=== PATIENT | female | born 1965 | race Caucasian/White ===

== ENCOUNTER 2017-09-25 23:48 | Emergency (ER) | payer SELFPAY ==
[2017-09-26] MEDS ORDERED: Morphine 10 MG/ML VIAL ONE (00:04)
[2017-09-26] MEDS ORDERED: Ondansetron HCl/PF 4 MG/2 ML Vial ONE (00:04)
[2017-09-26 00:14] LABS: #Basophils 0.1 thou/uL (0.0-0.2); #Eosinphils 0.2 thou/uL (0.0-0.7); #Monocytes 1.3 thou/uL (0.11-0.59); #Neutrophils 8.2 thou/uL (1.40-6.50); %Basophils 0.9 % (0.0-1.0); %Eosinophils 1.3 % (0.0-10.0); %Lymphocytes 33.8 % (21.0-51.0); %Monocytes 8.7 % (0.0-10.0); Hematocrit 53.2 % (36.0-47.0); Mean Platelet Volume 8.1 fL (7.4-10.4); Red Blood Cell (RBC) Count 5.08 mill/uL (4.20-5.40); White Blood Cell (WBC) Count 14.7 thou/uL (4.8-10.8)
[2017-09-26 00:29] LABS: Lactic Acid - Sepsis 1.7 mmol/L (0.5-2.2)
[2017-09-26 00:34] LABS: ALT (SGPT) 97 U/L (8-55); AST (SGOT) 97 U/L (5-34); Alkaline Phosphatase 103 U/L (40-150); Anion Gap 17 mmol/L (10-20); BUN (Urea Nitrogen) 16 mg/dL (9.8-20.1); Bilirubin, Total 0.2 mg/dL (0.2-1.2); Calc. Creatinine Clearance 0 mL/min (70-130); Calcium 9.2 mg/dL (7.8-10.44); Carbon Dioxide 20 mmol/L (22-29); Chloride 110 mmol/L (98-107); Estimated GFR-MDRD 84; Globulin 4.3 g/dL (2.4-3.5); Protein, Total 8.2 g/dL (6.0-8.3)
[2017-09-26 01:21] LABS: Bilirubin Negative (Negative); Blood, Urine Negative (Negative); Glucose, Urine (Dipstick) Negative (Negative); Ketone, Urine Negative (Negative); Nitrite Negative (Negative); Protein, Urine (Dipstick) Negative (Neg-Trace); Urobilinogen 0.2 mg/dL (0.2-1.0)
[2017-09-26] MEDS ORDERED: Bacitracin Zinc 1 Packet ONE (02:30)
[2017-09-26] MEDS ORDERED: Adacel (T-DAP) 0.5 ML VIAL ONE (02:40)
--- NOTE | 2017-09-26 07:45 | RAD ---
CHEST ONE VIEW: HISTORY: Emergency exam. COMPARISON: None. FINDINGS: The lungs are slightly hyperinflated. The cardiac silhouette and mediastinal contours are within no rmal limits. There are left upper quadrant surgical clips in the abdomen. No displaced rib fracture. IMPRESSION: No acute intrathoracic abnormality. POS: [facility]
--- NOTE | 2017-09-26 07:53 | RAD ---
EMERGENCY EXAM PELVIS ONE VIEW: COMPARISON: None. FINDINGS: There is a nondisplaced fracture of the right greater trochanter of the femur. Severe degenerative disease of the left hip with ring osteophytes of the left femoral head-neck junction. There are als o large osteophytes of the acetabulum. Mild narrowing of the pubic symphysis. Both obturator rings are intact. Severe facet arthropathy at L4-L5. IMPRESSION: Nondisplaced fracture of the greater trochanter of the right femur. POS: [facility]
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
== END 2017-09-26 02:49 | disposition home or self-care (01) ==
LOC: ERS 23:48
DX: S72.114A Nondisplaced fracture of greater trochanter of right femur, initial encounter for closed fracture (principal); J45.909 Unspecified asthma, uncomplicated; F17.210 Nicotine dependence, cigarettes, uncomplicated; V86.59XA Driver of other special all-terrain or other off-road motor vehicle injured in nontraffic accident, initial encounter
CPT/HCPCS: 71010; 72040; 72170; 80053; 81003; 83605; 85025; 86850; 86870; 86900; 86901; 86905; 90471; 90715; 96374; 96375; 99406; J2270; J2405

== ENCOUNTER 2019-09-04 14:10 | Emergency (ER) | payer SELFPAY ==
[2019-09-04] MEDS ORDERED: Ketorolac Tromethamine 30 MG/ML VIAL ONE (15:13)
--- NOTE | 2019-09-04 15:47 | RAD ---
Exam: XR Hip Lt 2-3 View HISTORY: Left groin hip pain for 2 weeks. COMPARISON: AP pelvis radiograph on 09/26/2017 FINDINGS: Osteoarthritis is again seen involving the left hip with narrowing of the superolateral joint space w ith subchondral cystic changes present and rim of osteophytes seen at the femoral head neck junction similar to prior exam. Degenerative changes are seen in the visualized lower lumbar spine. No acute fracture, dislocation, or other acute osseous abnormality is identified. IMPRESSION: No acute osseous abnormality is identified.
== END 2019-09-04 16:41 | disposition home or self-care (01) ==
LOC: ERS 14:10
DX: M25.552 Pain in left hip (principal); J44.9 Chronic obstructive pulmonary disease, unspecified; F17.210 Nicotine dependence, cigarettes, uncomplicated; Z79.51 Long term (current) use of inhaled steroids
CPT/HCPCS: 96372; J1885

== ENCOUNTER 2020-07-02 22:31 | Inpatient (IN) | payer OTHER ==
[~2020-07-02 22:31] MED LIST: Iopamidol-370 76% 500 ML 1 ML ONE
[2020-07-02] MEDS ORDERED: Ketorolac Tromethamine 30 MG/ML VIAL ONE (22:42)
[2020-07-02] MEDS ORDERED: Morphine 4 MG/ML VIAL ONE (22:44)
[2020-07-02] MEDS ORDERED: CEFAZOLIN 1 GM VIAL ONE (22:44)
[2020-07-02] MEDS ORDERED: Adacel (T-DAP) 0.5 ML SYRINGE ONE (22:44)
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
[2020-07-02 23:18] LABS: ALT (SGPT) 54 U/L (8-55); AST (SGOT) 67 U/L (5-34); Albumin 3.3 g/dL (3.5-5.0); Alkaline Phosphatase 73 U/L (40-110); Anion Gap 11 mmol/L (10-20); BUN (Urea Nitrogen) 14 mg/dL (9.8-20.1); Band 2 % (5-11); Bilirubin, Total 0.4 mg/dL (0.2-1.2); Calc. Creatinine Clearance 0 mL/min (70-130); Calcium 8.3 mg/dL (7.8-10.44); Carbon Dioxide 20 mmol/L (22-29); Chloride 109 mmol/L (98-107); Estimated GFR-MDRD 54; Glucose 116 mg/dL (70-105); Hemoglobin 16.7 g/dL (12.0-16.0); Lymphocytes 11 % (21-51); MDiff Complete? YES; Macrocytosis SLIGHT = 6-15 cells (100X) (0-5/hpf); Magnesium 1.4 mg/dL (1.6-2.6); Mean Corpuscular HGB CONC 32.3 g/dL (32.0-36.0); Mean Corpuscular Hemoglobin 34.7 pg (27.0-31.0); Mean Platelet Volume 9.4 fL (7.4-10.4); Monocytes 1 % (0-10); Neutrophil 86 % (42-75); Platelet Count 228 thou/uL (130-400); Potassium 4.2 mmol/L (3.5-5.1); Protein, Total 6.3 g/dL (6.0-8.3); RBC Distribution Width 12.5 % (11.5-14.5); Red Blood Cell (RBC) Count 4.81 mill/uL (4.20-5.40); Sodium 136 mmol/L (136-145); White Blood Cell (WBC) Count 21.7 thou/uL (4.8-10.8)
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
--- NOTE | 2020-07-02 23:38 | RAD ---
XR Knee Lt 4 View STANDARD HISTORY: No trauma. Left knee pain FINDINGS: No acute fracture or dislocation is identified. There is a old healed fracture of the proximal fibula
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
[2020-07-03] MEDS ORDERED: Dextrose 5% in Water 1,000 ML IV PRN (00:04)
[2020-07-03] MEDS ORDERED: Dextrose 50% Abboject 50 ML SYRINGE SLOW IVP PRN (00:04)
[2020-07-03] MEDS ORDERED: hydrALAZINE 20 MG/ML VIAL SLOW IVP PRN (00:04)
[2020-07-03] MEDS ORDERED: Morphine 4 MG/ML VIAL ONE (00:04)
[2020-07-03] MEDS ORDERED: Ondansetron ODT 4 MG TAB PO PRN (00:04)
[2020-07-03] MEDS ORDERED: HumaLOG 300 UNITS/3 ML VIAL SC PRN (00:04)
[2020-07-03] MEDS ORDERED: Lidocaine 1% (PF) 30 ML VIAL ONE (00:10)
[2020-07-03] MEDS ORDERED: Sodium Chloride 0.9% 1,000 ML IV SCH (00:15)
[2020-07-03 00:53] LABS: Bilirubin Negative (Negative); Blood, Urine Negative (Negative); Clarity Clear (Clear); Glucose, Urine (Dipstick) Normal (Negative); Ketone, Urine Negative (Negative); Leukocyte Negative Leu/uL (Negative); Nitrite Negative (Negative); Protein, Urine (Dipstick) Negative (Neg-Trace); Specific Gravity, Urine 1.015 (1.002-1.036); Urobilinogen Normal mg/dL (Less than 2)
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
[2020-07-03] MEDS: Morphine 2 MG/ML VIAL SLOW IVP PRN ×2 (02:21→04:56)
[2020-07-03 02:37] VITALS: BMI 17.3
[2020-07-03] MEDS: Acetaminophen 500 MG TAB PO SCH ×3 (05:01→17:39)
[2020-07-03 05:39] LABS: Hemoglobin 14.6 g/dL (12.0-16.0)
[2020-07-03 06:45] LABS: Hemoglobin 15.5 g/dL (12.0-16.0)
[2020-07-03] MEDS: Budesonide 0.25 MG/2 ML NEB INH SCH ×2 (07:03→19:58)
[2020-07-03] MEDS ORDERED: Magnesium 2 GM/50 ML 2 GM in Premix Bag 1 BAG IVPB ONE (08:45)
[2020-07-03] MEDS ORDERED: Oxazepam 10 MG CAP PO SCH (09:00)
[2020-07-03] MEDS ORDERED: Gabapentin 300 MG CAP PO SCH (09:00)
[2020-07-03] MEDS: Thiamine 100 MG TAB PO SCH (09:04)
[2020-07-03] MEDS: Famotidine 20 MG TAB PO SCH ×2 (09:04→19:18)
[2020-07-03] MEDS: Folic Acid 1 MG TAB PO SCH (09:04)
[2020-07-03] MEDS: traMADol HCl 50 MG TAB PO PRN ×2 (09:04→17:42)
[2020-07-03 12:46] LABS: Hemoglobin 14.4 g/dL (12.0-16.0)
[2020-07-03 13:55] LABS: SARS-CoV-2 MS2 Positive; SARS-CoV-2 N Gene Negative; SARS-CoV-2 S Gene Negative; SARS-CoV-2 by NAA Not Detected (NotDetected); SARS-CoV-2 orf1ab Negative
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
[2020-07-03] MEDS: Ibuprofen 800 MG TAB PO PRN (19:18)
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
[2020-07-04] MEDS: Acetaminophen 500 MG TAB PO SCH ×3 (01:29→11:06)
[2020-07-04 05:23] LABS: #Basophils 0.1 thou/uL (0.0-0.2); #Eosinphils 0.3 thou/uL (0.0-0.7); #Lymphocytes 4.2 thou/uL (1.20-3.40); #Monocytes 1.4 thou/uL (0.11-0.59); #Neutrophils 7.6 thou/uL (1.40-6.50); %Basophils 0.7 % (0.0-1.0); %Lymphocytes 30.8 % (21.0-51.0); %Monocytes 10.3 % (0.0-10.0); %Neutrophils 56.2 % (42.0-75.0); Hemoglobin 16.3 g/dL (12.0-16.0); Mean Corpuscular HGB CONC 30.8 g/dL (32.0-36.0); Mean Corpuscular Hemoglobin 32.8 pg (27.0-31.0); Platelet Count 214 thou/uL (130-400); RBC Distribution Width 12.4 % (11.5-14.5); Red Blood Cell (RBC) Count 4.98 mill/uL (4.20-5.40); White Blood Cell (WBC) Count 13.6 thou/uL (4.8-10.8)
[2020-07-04 05:49] LABS: Anion Gap 13 mmol/L (10-20); BUN (Urea Nitrogen) 11 mg/dL (9.8-20.1); Calc. Creatinine Clearance 65 mL/min (70-130); Calcium 8.6 mg/dL (7.8-10.44); Carbon Dioxide 20 mmol/L (22-29); Chloride 106 mmol/L (98-107); Estimated GFR-MDRD 85; Glucose 94 mg/dL (70-105); Magnesium 1.5 mg/dL (1.6-2.6); Potassium 4.3 mmol/L (3.5-5.1); Sodium 135 mmol/L (136-145)
[2020-07-04] MEDS: Budesonide 0.25 MG/2 ML NEB INH SCH (07:38)
[2020-07-04] MEDS: traMADol HCl 50 MG TAB PO PRN ×2 (07:51→14:15)
[2020-07-04] MEDS: Famotidine 20 MG TAB PO SCH (07:52)
[2020-07-04] MEDS: Folic Acid 1 MG TAB PO SCH (07:53)
[2020-07-04] MEDS: Thiamine 100 MG TAB PO SCH (07:53)
[2020-07-04] MEDS ORDERED: Magnesium Sulfate 4 GM in Sodium Chloride 0.9% 250 ML 250 ML IVPB SCH (08:45)
[2020-07-04] MEDS: Ibuprofen 800 MG TAB PO PRN (09:36)
[2020-07-04 11:36] VITALS: BP 109/72; TEMP 97.7
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
== END 2020-07-04 14:50 | disposition home or self-care (01) | DRG 443 ==
LOC: ERS 22:31 → SURG A 07-03 00:10
PROVIDERS: ADMIT Specialist; ATTEND Specialist
DX: S36.115A Moderate laceration of liver, initial encounter (principal); S61.412A Laceration without foreign body of left hand, initial encounter; S60.222A Contusion of left hand, initial encounter; J44.9 Chronic obstructive pulmonary disease, unspecified; F17.210 Nicotine dependence, cigarettes, uncomplicated; F12.10 Cannabis abuse, uncomplicated; S70.01XA Contusion of right hip, initial encounter; R40.2413 Glasgow coma scale score 13-15, at hospital admission; F10.10 Alcohol abuse, uncomplicated; V89.2XXA Person injured in unspecified motor-vehicle accident, traffic, initial encounter
CPT/HCPCS: 36415; 70450; 71045; 72170; 74177; 80048; 80053; 81003; 83735; 84100; 85014; 85018; 85025; 86850; 86870; 86900; 86901; 86922; 87635; 90715; 94640; G0390; J0690; J1885; J2001; J2270; J2997; J3475; J7050; J7620; J7626; Q9967; U0003